=== PATIENT | male | born 1970 | race Caucasian/White ===

== ENCOUNTER 2023-04-06 14:06 | Emergency (ER) | payer MEDICAID ==
--- NOTE | 2023-04-06 14:43 | NUR ---
PT TRIAGED. PT STABLE. PT PLACED IN ER WAITING ROOM. WILL CONTINUE TO MONITOR.
[2023-04-06 14:44] VITALS: BP_SYST 149
--- NOTE | 2023-04-06 15:05 | NUR ---
pt bib c/o right knee pain. pt states he has been having on and off right knee pain. pt denies any trauma to the right knee. pt states he has been having visable swelling on the right knee for the past 2 months. pt is gcs 15 eyes open spontaneously. pt is oriented to person, place, time, and situation. pt obeys commands. pt denies visual or auditory problems. pt skin is warm and intact. pt denies sob and chest pain. pt is in room 3 on the monitor with at bedside. plan of care continues.
[2023-04-06] MEDS ORDERED: ACET-2634 PO (16:46)
[2023-04-06] MEDS ORDERED: IBUP-1970 PO (16:46)
--- NOTE | 2023-04-06 16:58 | NUR ---
Patient given written and verbal discharge instructions and verbalizes understanding. ER MD discussed with patient the results and treatment provided. Patient in stable condition. ID arm band removed. Rx of toradol given. Patient educated on pain management and to follow up with PMD. Pain Scale 3/10. Opportunity for questions provided and answered.
== END 2023-04-06 16:58 | disposition home or self-care (01) ==
LOC: SED 14:06
DX: M70.41 Prepatellar bursitis, right knee (principal); M25.561 Pain in right knee; Z79.899 Other long term (current) drug therapy; Y93.89 Activity, other specified
CPT/HCPCS: 73564; 99283